=== PATIENT | female | born 1980 | race Caucasian/White ===

== ENCOUNTER 2018-01-25 13:40 | Outpatient (CLI) | payer OTHER ==
[~2018-01-25 13:40] MED LIST: ANUSOL-HC30 G2 RECTAL; COLACE100 MG PO; FOLIC ACID0.4 MG PO; NAPROXEN500 MG PO; PRENATAL TABLE1 EAC1 PO; SYNTHROID200 MCG PO; VALTREX1000 MG PO
== END 2018-01-25 14:16 | disposition home or self-care (01) ==
LOC: RAD 13:40
DX: Z00.8 Encounter for other general examination (principal)

== ENCOUNTER 2018-05-06 12:26 | Outpatient (CLI) | payer OTHER | END 2018-05-06 12:28 | disposition home or self-care (01) | LOC: SONOGRAMA 12:26 | DX: N84.0 Polyp of corpus uteri (principal); N92.5 Other specified irregular menstruation ==

== ENCOUNTER 2018-06-10 12:06 | Day surgery (SDC) | payer OTHER ==
[2018-06-10] MEDS ORDERED: KETO10TA2 PO (14:36)
== END 2018-06-10 17:00 | disposition home or self-care (01) ==
LOC: CIR.AMB 12:06
DX: N84.0 Polyp of corpus uteri (principal); N84.1 Polyp of cervix uteri